=== PATIENT | female | born 1975 | race Caucasian/White ===

== ENCOUNTER 2016-10-21 12:20 | Emergency (ER) | payer OTHER ==
[2015-11-02 08:59] VITALS: BMI 36.1
[~2016-10-21 12:20] MED LIST: ALDACTONE50 MG PO; CELEXA20 MG PO; PRAVACHOL20 MG PO
== END 2016-10-21 14:19 | disposition home or self-care (01) ==
LOC: D.ER 12:20
DX: M54.30 Sciatica, unspecified side (principal); F17.200 Nicotine dependence, unspecified, uncomplicated

== ENCOUNTER → 2017-05-03 19:33 | Outpatient (CLI) | payer OTHER ==
[2015-11-02 08:59] VITALS: BMI 36.1
== END | disposition home or self-care (01) ==
LOC: D.SLEEP 19:33
DX: G47.30 Sleep apnea, unspecified (principal)

== ENCOUNTER 2018-05-27 19:51 | Emergency (ER) | payer OTHER ==
[~2018-05-27] VITALS: Ht 170.2 cm; Wt 97.7 kg
[2018-05-27 20:16] VITALS: Ht 170.2 cm; Wt 97.7 kg
[2018-05-27] MEDS ORDERED: ZOLOFT50 MG PO (20:17)
[2018-05-27] MEDS ORDERED: LEXAPRO20 MG PO (20:17)
[2018-05-27] MEDS ORDERED: TOPAMAX50 MG PO ×2 (20:17→20:18)
[2018-05-27 21:59] VITALS: BP 156/77
== END 2018-05-27 21:59 | disposition home or self-care (01) ==
LOC: D.ER 19:51
DX: J02.9 Acute pharyngitis, unspecified (principal)

== ENCOUNTER 2019-02-07 11:21 | Emergency (ER) | payer OTHER ==
[~2019-02-07] VITALS: Ht 170.2 cm; Wt 97.7 kg
[~2019-02-07 11:21] MED LIST changes: +LEXAPRO20 MG PO; +TOPAMAX50 MG PO; +ZOLOFT50 MG PO
[2019-02-07 11:23] VITALS: Ht 170.2 cm; Wt 97.7 kg
[2019-02-07 12:01] LABS: CALC OSMOLALITY 286 mosm/kg (275-300); CALCIUM 9.2 mg/dL (8.5-10.1); CARBON DIOXIDE 21.3 mmol/L (21.0-32.0); CHLORIDE - SERUM 108 mmol/L (98-107); CREATININE - SERUM 0.8 mg/dL (0.6-1.3); GLUCOSE 154 mg/dL (74-106); POTASSIUM - SERUM 3.9 mmol/L (3.5-5.1); SODIUM 142 mmol/L (136-145); UREA NITROGEN 14 mg/dL (7-18); eGFR NON AFRICAN AMERICAN 82 mL/min (90-120)
[2019-02-07 12:08] LABS: ALBUMIN 4.2 g/dL (3.4-5.0); ALKALINE PHOSPHATASE 97 U/L (46-116); ALT (SGPT) 28 U/L (10-68); BILIRUBIN - TOTAL 0.26 mg/dL (0.2-1.3); PROTEIN - SERUM 7.7 g/dL (6.4-8.2)
[2019-02-07 12:10] LABS: BASOPHILS 0.2 % (0-2); HEMATOCRIT 41.5 % (36.0-48.0); IMMATURE GRANULOCYTES 0.2 % (0-5); MCH 30.6 pg (26.0-34.0); MCHC 33.7 g/dL (31.0-37.0); MCV 90.6 fL (80.0-100.0); MEAN PLATELET VOLUME 9.8 fL (7.4-10.4); MONOCYTES 4.1 % (2-11); NEUTROPHILS 71.5 % (40-80); PLATELET COUNT 196 10x3/uL (130-400); RBC 4.58 10x6/uL (4.00-5.40); RDW 13.4 % (11.5-14.5); WBC 8.3 10x3/uL (4.8-10.8)
[2019-02-07] MEDS ORDERED: OMNICEF300 MG PO (15:02)
[2019-02-07] MEDS ORDERED: NAPROSYN500 MG PO (15:02)
[2019-02-07 15:15] VITALS: BP 134/64
== END 2019-02-07 15:17 | disposition home or self-care (01) ==
LOC: D.ER 11:21
PROVIDERS: Family Medicine
DX: H92.02 Otalgia, left ear (principal)